=== PATIENT | male | born 1955 | race Caucasian/White ===

== ENCOUNTER 2023-01-30 12:11 | Emergency (ER) | payer MEDICAID ==
[~2023-01-30] VITALS: Ht 162.6 cm; Wt 72.6 kg
[2023-01-30 12:26] VITALS: BP 117/65; PULSE 97; RESP 18; TEMP 98.3; O2SAT 97
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
[2023-01-30] MEDS ORDERED: NACL 0.9% 1,000 ML IV ONE (13:15)
--- NOTE | 2023-01-30 13:15 | NUR ---
NS ORDERED NOT GIVEN PER DR HOOPER AFTER INFORMING PT RECEIVED NS 1000MG ON FEILD PRIOR TO ARRIVAL TO ED.
[2023-01-30 13:30] LABS: BASOPHILS % (AUTO) 0.3 % (0.0-2.0); EOSINOPHILS # (AUTO) 0.1 K/uL (0-0.4); EOSINOPHILS % (AUTO) 0.4 % (0.0-4.0); HEMATOCRIT 36.8 % (36-52); HEMOGLOBIN 12.4 g/dL (12.0-18.0); LYMPHOCYTES # (AUTO) 1.2 K/uL (2.0-11.5); LYMPHOCYTES % (AUTO) 8.9 % (20.5-51.1); MEAN CORPUSCULAR HEMOGLOBIN 29 pg (27-31); MEAN CORPUSCULAR HGB CONC 34 g/dL (33-37); MEAN CORPUSCULAR VOLUME 85.2 fL (80-94); MONOCYTES # (AUTO) 0.7 K/uL (0.8-1.0); MONOCYTES % (AUTO) 5.1 % (1.7-9.3); NEUTROPHILS # (AUTO) 11.3 K/uL (1.8-7.7); NEUTROPHILS % (AUTO) 85.3 % (42.2-75.2); PLATELET COUNT (AUTO) 285 K/uL (140-450); RED BLOOD CELL COUNT(AUTO) 4.32 MIL/uL (4.20-6.10); RED CELL DISTRIBUTION WIDTH 15.4 % (11.6-13.7); WHITE BLOOD COUNT (AUTO) 13.3 K/uL (4.8-10.8)
[2023-01-30 13:46] LABS: ALBUMIN 3.7 g/dL (3.4-5.0); ANION GAP 12.5 (8-16); CARBON DIOXIDE 27.4 mmol/L (21-32); CREATININE 1.2 mg/dL (0.6-1.3); TOTAL BILIRUBIN 0.6 mg/dL (0.0-1.0)
[2023-01-30 13:48] LABS: POTASSIUM 2.9 mmol/L (3.5-5.1)
[2023-01-30] MEDS ORDERED: POTASSIUM CHLORIDE 10 MEQ TABER PO ONE (13:50)
[2023-01-30 14:45] VITALS: O2SAT 97
--- NOTE | 2023-01-30 15:01 | NUR ---
PT AWAKE, SITTING UPRIGHT, PT STATES HE IS FEELING MUCH BETTER.
[2023-01-30 15:35] VITALS: BP 129/73; PULSE 63; RESP 15; TEMP 97.5; O2SAT 99
--- NOTE | 2023-01-30 15:35 | NUR ---
Patient discharged with v/s stable. Written and verbal after care instructions given and explained. Patient verbalized understanding. Ambulatory with steady gait. All questions addressed prior to discharge. Advised to follow up with PMD.
== END 2023-01-30 15:35 | disposition home or self-care (01) ==
LOC: MED 12:11
DX: E87.6 Hypokalemia (principal); T67.5XXA Heat exhaustion, unspecified, initial encounter; X58.XXXA Exposure to other specified factors, initial encounter; Y93.89 Activity, other specified; Y92.89 Other specified places as the place of occurrence of the external cause; Y99.8 Other external cause status
CPT/HCPCS: 36415; 71045; 80053; 85025; 93005; 99285; Q0092